=== PATIENT | male | born 1945 | race Caucasian/White ===

== ENCOUNTER 2019-07-15 06:15 | Emergency (ER) | payer MEDICARE, BC ==
[~2019-07-15] VITALS: Ht 175.3 cm; Wt 82.1 kg
[2019-07-15] MEDS ORDERED: AMLO5TAB9 PO (06:27)
[2019-07-15] MEDS ORDERED: AZIT250T13 PO (06:27)
[2019-07-15] MEDS ORDERED: PRED20TA PO (06:27)
--- NOTE | 2019-07-15 06:35 | NUR ---
Dr. Irwin at bedside for MSE.
--- NOTE | 2019-07-15 06:49 | NUR ---
Report given to Isaiah MILIAN dayshift.
[2019-07-15] MEDS ORDERED: CEFTRIAXONE 2 G in IV DEXTROSE 5% 100 ML IV ONE (07:15)
[2019-07-15] MEDS ORDERED: IV NORMAL SALINE 1000 ML BAG IV ONE (07:15)
[2019-07-15] MEDS ORDERED: CEFTRIAXONE 1 G VIAL ONE (07:25)
--- NOTE | 2019-07-15 08:36 | NUR ---
Patient discharged to home in stable conditon. Written and verbal after care instructions given. Patient verbalizes understanding of instructions.pt walks in steady gait. pt with ,pt not driving
[2019-07-15 08:42] VITALS: BP 108/69
== END 2019-07-15 08:43 | disposition home or self-care (01) ==
LOC: ER 06:18
DX: J06.9 Acute upper respiratory infection, unspecified (principal); Z79.2 Long term (current) use of antibiotics; Z79.899 Other long term (current) drug therapy
CPT/HCPCS: 71045; 96365; 99283; J0696; A4663; J3490; J7030